=== PATIENT | female | born 2000 | race Asian ===

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

== ENCOUNTER 2018-10-07 23:59 | Emergency (ER) | payer MEDICAID ==
[~2018-10-07] VITALS: Ht 167.6 cm; Wt 167.0 kg
[2018-10-08 00:09] VITALS: BP 128/74
[2018-10-08] MEDS ORDERED: acetaminophen 325mg tablet PO STA (00:20)
[2018-10-08] MEDS ORDERED: DOXY100C43 PO (00:43)
[2018-10-08] MEDS ORDERED: ALBU8HFA PO (00:43)
[2018-10-08] MEDS ORDERED: PRED20TA PO (00:43)
== END 2018-10-08 | disposition home or self-care (01) ==
LOC: ER 10-08
DX: J20.9 Acute bronchitis, unspecified (principal); J22 Unspecified acute lower respiratory infection; J02.9 Acute pharyngitis, unspecified; I10 Essential (primary) hypertension; E11.9 Type 2 diabetes mellitus without complications; F17.210 Nicotine dependence, cigarettes, uncomplicated; Z79.899 Other long term (current) drug therapy
CPT/HCPCS: 99283; 99406

== ENCOUNTER 2020-01-17 16:26 | Emergency (ER) | payer MEDICAID ==
[~2020-01-17] VITALS: Ht 167.6 cm; Wt 173.0 kg
[2020-01-17 17:02] LABS: CLARITY,URINE CLEAR (Clear); COLOR,URINE YELLOW (Yellow); GLUCOSE, URINE NEGATIVE (Neg); KETONES,URINE NEGATIVE (Neg); LEUKOCYTE ESTERASE ,URINE NEGATIVE (Neg); NITRITES, URINE NEGATIVE (Neg); OCCULT BLOOD,URINE NEGATIVE (Neg); PROTEIN,URINE 100 mg/dl (Neg); UROBILINOGEN,URINE 0.2 E.U/dL (0.2-1.0)
[2020-01-17 17:08] LABS: URINE HCG NEGATIVE (NEG)
[2020-01-17 17:09] LABS: BASOPHILS # (AUTO) 0.1 X10'3 (0-0.2); BASOPHILS % (AUTO) 0.3 % (0-1); EOSINOPHILS # (AUTO) 0.5 X10'3 (0-0.9); HEMATOCRIT 44.6 % (35.0-45.0); HEMOGLOBIN 14.7 g/dl (12.0-16.0); LYMPHOCYTES # (AUTO) 3.3 X10'3 (1.1-4.8); LYMPHOCYTES % (AUTO) 18.8 % (21-51); MEAN CORPUSCULAR HEMOGLOBIN 28.9 PG (27.0-31.0); MEAN CORPUSCULAR HGB CONC 32.8 g/dL (33.0-36.5); MEAN CORPUSCULAR VOLUME 87.9 FL (78-98); MEAN PLATELET VOLUME 8.5 FL (7.4-10.4); MONOCYTES # (AUTO) 0.6 X10'3 (0-0.9); MONOCYTES % (AUTO) 3.4 % (2-12); NEUTROPHILS % (AUTO) 74.5 % (42-75); PLATELET COUNT 250 X10'3 (140-440); RED BLOOD COUNT 5.08 X10'6 (4.20-5.60); RED CELL DISTRIBUTION WIDTH 13.8 % (11.5-14.5); WHITE BLOOD COUNT 17.5 X10'3 (4.5-11.0)
[2020-01-17 17:13] LABS: UA COLLECTION TYPE NON-SPECIFIED
[2020-01-17 17:14] LABS: BACTERIA,URINE FEW /HPF (Neg); MUCUS STRANDS FEW /LPF (Neg); RBC,URINE 0-2 /HPF (0-2); SQUAMOUS EPITHELIAL CELL,UR MANY /LPF (FEW); WBC,URINE 0-4 /HPF (0-4)
[2020-01-17] MEDS ORDERED: morphine 2 MG/ML inj. syringe IV ONE (17:15)
[2020-01-17] MEDS ORDERED: ondansetron/PF 4mg/2ml inj IV ONE ×2 (17:15→19:00)
[2020-01-17] MEDS ORDERED: iohexol 300mg/ml 100ml inj. ONE (17:21)
[2020-01-17 17:23] LABS: ALANINE AMINOTRANSFERASE 41 U/L (12-78); ALBUMIN/GLOBULIN RATIO 0.9 (1.1-1.5); ALKALINE PHOSPHATASE 53 IU/L (46-116); ANION GAP 12 (8-16); ASPARTATE AMINO TRANSFERASE 27 U/L (10-37); BILIRUBIN,TOTAL 0.5 MG/DL (0.1-1.0); BLOOD UREA NITROGEN 11 MG/DL (7-18); BUN/CREATININE RATIO 12.9 (6.6-38.0); CALCIUM 9.2 MG/DL (8.5-10.1); CHLORIDE 104 MMOL/L (99-107); CREATININE 0.85 MG/DL (0.40-0.90); GLUCOSE 111 MG/DL (70-104); LIPASE 110 U/L (73-393); POTASSIUM 3.9 MMOL/L (3.5-5.1); SODIUM 139 MMOL/L (135-145); TOTAL CARBON DIOXIDE 22.6 MMOL/L (24-32); TOTAL PROTEIN 8.4 G/DL (6.4-8.2); eGFR 84 ML/MIN
[2020-01-17] MEDS ORDERED: ceFOXitin 1 GM/D5W 50mL IVPB 1 GM in normal saline 100ml IV soln 100 ML IV ONE (18:10)
[2020-01-17] MEDS ORDERED: normal saline 1000ML IV soln IVB ONE (18:10)
[2020-01-17] MEDS ORDERED: ceFOXitin 1 GM/D5W 50mL IVPB 50 ML IV ONE (18:12)
--- NOTE | 2020-01-17 18:45 | NUR ---
returned from [place]
[2020-01-17] MEDS ORDERED: ONDA4TAB6 PO (19:26)
[2020-01-17] MEDS ORDERED: metoclopramide 5 mg/ml inj IV ONE (20:25)
[2020-01-17] MEDS ORDERED: diphenhydrAMINE 50 mg/ml inj IV ONE (20:25)
[2020-01-17 21:32] VITALS: BP 138/87
== END 2020-01-17 21:56 | disposition home or self-care (01) ==
LOC: ER 16:26
DX: R10.13 Epigastric pain (principal); R11.10 Vomiting, unspecified; I10 Essential (primary) hypertension; E11.9 Type 2 diabetes mellitus without complications; F32.9 Major depressive disorder, single episode, unspecified; Z79.899 Other long term (current) drug therapy
CPT/HCPCS: 36415; 74177; 80053; 81001; 81025; 82948; 83605; 83690; 84145; 85025; 87040; 96361; 96374; 96375; 99285; J1200; J2270; J2405; J2765; J7030; Q9967; 96376

== ENCOUNTER 2020-03-03 09:42 | Emergency (ER) | payer MEDICAID ==
[~2020-03-03] VITALS: Ht 167.6 cm; Wt 170.4 kg
[~2020-03-03 09:42] MED LIST changes: +ONDA4TAB6 PO
[2020-03-03 10:41] LABS: BASOPHILS # (AUTO) 0.1 X10'3 (0-0.2); BASOPHILS % (AUTO) 0.5 % (0-1); EOSINOPHILS % (AUTO) 0.2 % (0-6); HEMATOCRIT 43.8 % (35.0-45.0); HEMOGLOBIN 14.6 g/dl (12.0-16.0); LYMPHOCYTES % (AUTO) 16.4 % (21-51); MEAN CORPUSCULAR HEMOGLOBIN 29.3 PG (27.0-31.0); MEAN CORPUSCULAR HGB CONC 33.3 g/dL (33.0-36.5); MEAN CORPUSCULAR VOLUME 87.8 FL (78-98); MEAN PLATELET VOLUME 8.4 FL (7.4-10.4); MONOCYTES # (AUTO) 1.1 X10'3 (0-0.9); MONOCYTES % (AUTO) 6.2 % (2-12); NEUTROPHILS # (AUTO) 14.1 X10'3 (1.8-7.7); NEUTROPHILS % (AUTO) 76.7 % (42-75); PLATELET COUNT 291 X10'3 (140-440); RED BLOOD COUNT 4.99 X10'6 (4.20-5.60); RED CELL DISTRIBUTION WIDTH 13.9 % (11.5-14.5); WHITE BLOOD COUNT 18.4 X10'3 (4.5-11.0)
[2020-03-03] MEDS ORDERED: LIDOcaine Viscous 15ml cup MM STA (10:47)
[2020-03-03] MEDS ORDERED: mag hydrox/Alum hydrox/simeth 30ml oral suspension PO ONE (10:50)
[2020-03-03] MEDS ORDERED: famotidine 20mg tablet PO ONE (10:50)
[2020-03-03 10:58] LABS: CLARITY,URINE CLOUDY (Clear); GLUCOSE, URINE NEGATIVE (Neg); KETONES,URINE NEGATIVE (Neg); LEUKOCYTE ESTERASE ,URINE SMALL (Neg); NITRITES, URINE NEGATIVE (Neg); OCCULT BLOOD,URINE TRACE-INTACT (Neg); PROTEIN,URINE 100 mg/dl (Neg)
[2020-03-03] MEDS ORDERED: normal saline 1000ML IV soln IVB ONE (11:00)
[2020-03-03 11:02] LABS: COLOR,URINE DARK YELLOW (Yellow); UA COLLECTION TYPE CLN CATCH MIDSTREAM
[2020-03-03 11:05] LABS: ALANINE AMINOTRANSFERASE 58 U/L (12-78); ALBUMIN 4.1 G/DL (3.4-5.0); ALBUMIN/GLOBULIN RATIO 0.9 (1.1-1.5); ALKALINE PHOSPHATASE 48 IU/L (46-116); AMYLASE 37 U/L (25-115); ANION GAP 12 (8-16); ASPARTATE AMINO TRANSFERASE 27 U/L (10-37); BILIRUBIN,TOTAL 0.8 MG/DL (0.1-1.0); BLOOD UREA NITROGEN 7 MG/DL (7-18); BUN/CREATININE RATIO 6.1 (6.6-38.0); CALCIUM 9.2 MG/DL (8.5-10.1); CHLORIDE 102 MMOL/L (99-107); CREATININE 1.14 MG/DL (0.40-0.90); GLUCOSE 119 MG/DL (70-104); LIPASE 62 U/L (73-393); POTASSIUM 3.1 MMOL/L (3.5-5.1); SODIUM 142 MMOL/L (135-145); TOTAL CARBON DIOXIDE 27.7 MMOL/L (24-32); TOTAL PROTEIN 8.5 G/DL (6.4-8.2); eGFR 60 ML/MIN
[2020-03-03 11:05] LABS: BACTERIA,URINE 3+ /HPF (Neg); MUCUS STRANDS MODERATE /LPF (Neg); RBC,URINE 0-2 /HPF (0-2); SQUAMOUS EPITHELIAL CELL,UR MANY /LPF (FEW)
[2020-03-03 11:19] LABS: URINE HCG NEGATIVE (NEG)
[2020-03-03] MEDS ORDERED: FAMO40TA58 PO (12:13)
[2020-03-03] MEDS ORDERED: MAG355OR18 PO (12:13)
[2020-03-03] MEDS ORDERED: ONDA4TAB6 PO (12:16)
[2020-03-03 12:20] VITALS: BP 162/91
[2020-03-03] MEDS ORDERED: DICY10CA88 PO (12:30)
== END 2020-03-03 12:32 | disposition home or self-care (01) ==
LOC: ER 09:43
DX: R10.13 Epigastric pain (principal); R11.2 Nausea with vomiting, unspecified; I10 Essential (primary) hypertension; E11.9 Type 2 diabetes mellitus without complications; F32.9 Major depressive disorder, single episode, unspecified; Z87.440 Personal history of urinary (tract) infections; Z79.899 Other long term (current) drug therapy
CPT/HCPCS: 36415; 80053; 81001; 81025; 82150; 83690; 85025; 96360; 99283; J7030

== ENCOUNTER 2020-06-25 06:39 | Emergency (ER) | payer MEDICAID ==
[~2020-06-25] VITALS: Ht 167.6 cm; Wt 159.1 kg
[~2020-06-25 06:39] MED LIST changes: +DICY10CA88 PO; +FAMO40TA58 PO
[2020-06-25] MEDS ORDERED: normal saline 1000ML IV soln IVB ONE (06:50)
[2020-06-25] MEDS ORDERED: ondansetron/PF 4mg/2ml inj IV ONE (06:50)
[2020-06-25] MEDS ORDERED: pantoprazole 40 MG vial IV ONE (07:05)
[2020-06-25] MEDS ORDERED: famotidine/PF 10 mg/ml inj IV ONE (07:05)
[2020-06-25] MEDS ORDERED: diphenhydrAMINE 50 mg/ml inj IV ONE (07:35)
[2020-06-25] MEDS ORDERED: LORazepam 2 mg/ml vial IV ONE (07:35)
[2020-06-25] MEDS ORDERED: proCHLORperazine 10 MG/2 ml inj IV ONE (07:35)
[2020-06-25] MEDS ORDERED: ketorolac trometh. 30mg/ml inj. IV ONE (07:45)
[2020-06-25 07:50] LABS: URINE HCG NEGATIVE (NEG)
[2020-06-25 07:55] LABS: BASOPHILS # (AUTO) 0.1 X10'3 (0-0.2); BASOPHILS % (AUTO) 0.6 % (0-1); EOSINOPHILS # (AUTO) 0.6 X10'3 (0-0.9); EOSINOPHILS % (AUTO) 4.3 % (0-6); HEMATOCRIT 41.4 % (35.0-45.0); HEMOGLOBIN 13.6 g/dl (12.0-16.0); LYMPHOCYTES # (AUTO) 3.5 X10'3 (1.1-4.8); MEAN CORPUSCULAR HEMOGLOBIN 28.7 PG (27.0-31.0); MEAN CORPUSCULAR HGB CONC 32.9 g/dL (33.0-36.5); MEAN CORPUSCULAR VOLUME 87.4 FL (78-98); MEAN PLATELET VOLUME 8.9 FL (7.4-10.4); MONOCYTES # (AUTO) 0.7 X10'3 (0-0.9); NEUTROPHILS % (AUTO) 65.1 % (42-75); PLATELET COUNT 246 X10'3 (140-440); RED BLOOD COUNT 4.73 X10'6 (4.20-5.60); RED CELL DISTRIBUTION WIDTH 13.9 % (11.5-14.5); WHITE BLOOD COUNT 13.8 X10'3 (4.5-11.0)
[2020-06-25 07:58] LABS: CLARITY,URINE CLOUDY (Clear); COLOR,URINE YELLOW (Yellow); GLUCOSE, URINE NEGATIVE (Neg); KETONES,URINE NEGATIVE (Neg); LEUKOCYTE ESTERASE ,URINE SMALL (Neg); NITRITES, URINE NEGATIVE (Neg); OCCULT BLOOD,URINE NEGATIVE (Neg); PH,URINE 7.5 (4.8-8.0); PROTEIN,URINE TRACE mg/dl (Neg)
[2020-06-25 08:04] LABS: ALANINE AMINOTRANSFERASE 57 U/L (12-78); ALBUMIN 3.9 G/DL (3.4-5.0); ALBUMIN/GLOBULIN RATIO 0.9 (1.1-1.5); ALKALINE PHOSPHATASE 48 IU/L (46-116); ANION GAP 10 (8-16); ASPARTATE AMINO TRANSFERASE 29 U/L (10-37); BILIRUBIN,TOTAL 0.6 MG/DL (0.1-1.0); BLOOD UREA NITROGEN 9 MG/DL (7-18); CALCIUM 8.8 MG/DL (8.5-10.1); CHLORIDE 104 MMOL/L (99-107); CREATININE 0.82 MG/DL (0.40-0.90); GLUCOSE 106 MG/DL (70-104); LIPASE 88 U/L (73-393); POTASSIUM 3.6 MMOL/L (3.5-5.1); SODIUM 138 MMOL/L (135-145); TOTAL CARBON DIOXIDE 24.1 MMOL/L (24-32); TOTAL PROTEIN 8.2 G/DL (6.4-8.2); eGFR 87 ML/MIN
[2020-06-25 08:15] LABS: UA COLLECTION TYPE CLN CATCH MIDSTREAM
[2020-06-25 08:17] LABS: HYALINE CASTS 0-3 /LPF (NEGATIVE); MUCUS STRANDS FEW /LPF (Neg)
[2020-06-25 08:18] LABS: RBC,URINE 0-2 /HPF (0-2)
[2020-06-25 08:20] LABS: BACTERIA,URINE 2+ /HPF (Neg)
[2020-06-25 08:21] LABS: SQUAMOUS EPITHELIAL CELL,UR MANY /LPF (FEW)
[2020-06-25] MEDS ORDERED: metoclopramide 5 mg/ml inj IV ONE (09:05)
[2020-06-25] MEDS ORDERED: ONDA4TAB6 PO (09:27)
[2020-06-25] MEDS ORDERED: PROM25SU9 RC (09:27)
[2020-06-25] MEDS ORDERED: PANT-47 PO (09:27)
[2020-06-25 09:54] VITALS: BP 148/105
== END 2020-06-25 09:55 | disposition home or self-care (01) ==
LOC: ER 06:40
DX: R11.15 Cyclical vomiting syndrome unrelated to migraine (principal); R10.13 Epigastric pain; R11.2 Nausea with vomiting, unspecified; I10 Essential (primary) hypertension; E11.9 Type 2 diabetes mellitus without complications; F32.9 Major depressive disorder, single episode, unspecified; F12.90 Cannabis use, unspecified, uncomplicated; Z79.899 Other long term (current) drug therapy
CPT/HCPCS: 36415; 80053; 81001; 81025; 83690; 85025; 96361; 96374; 96375; 99285; C9113; J0780; J1200; J1885; J2060; J2405; J2765; J3490; J7030

== ENCOUNTER 2020-10-13 07:50 | Emergency (ER) | payer MEDICAID ==
[~2020-10-13] VITALS: Ht 172.7 cm; Wt 154.0 kg
[~2020-10-13 07:50] MED LIST changes: +PANT-47 PO; +PROM25SU9 RC
[2020-10-13 08:21] LABS: BASOPHILS # (AUTO) 0.1 X10'3 (0-0.2); BASOPHILS % (AUTO) 0.7 % (0-1); EOSINOPHILS # (AUTO) 0.2 X10'3 (0-0.9); EOSINOPHILS % (AUTO) 0.9 % (0-6); HEMATOCRIT 43.2 % (35.0-45.0); HEMOGLOBIN 14.6 g/dl (12.0-16.0); LYMPHOCYTES # (AUTO) 2.7 X10'3 (1.1-4.8); LYMPHOCYTES % (AUTO) 14.7 % (21-51); MEAN CORPUSCULAR HGB CONC 33.7 g/dL (33.0-36.5); MEAN CORPUSCULAR VOLUME 86.2 FL (78-98); MEAN PLATELET VOLUME 8.9 FL (7.4-10.4); MONOCYTES # (AUTO) 0.7 X10'3 (0-0.9); MONOCYTES % (AUTO) 4.1 % (2-12); NEUTROPHILS # (AUTO) 14.6 X10'3 (1.8-7.7); NEUTROPHILS % (AUTO) 79.6 % (42-75); PLATELET COUNT 293 X10'3 (140-440); RED BLOOD COUNT 5.02 X10'6 (4.20-5.60); RED CELL DISTRIBUTION WIDTH 14.5 % (11.5-14.5); WHITE BLOOD COUNT 18.3 X10'3 (4.5-11.0)
[2020-10-13] MEDS ORDERED: pantoprazole 40 MG vial IV ONE (08:25)
[2020-10-13] MEDS ORDERED: LORazepam 2 mg/ml vial IV ONE (08:25)
[2020-10-13] MEDS ORDERED: ondansetron/PF 4mg/2ml inj IV ONE (08:25)
[2020-10-13] MEDS ORDERED: morphine 2 MG/ML inj. syringe IV PRN (08:25)
[2020-10-13] MEDS ORDERED: normal saline 1000ML IV soln IVB ONE (08:25)
[2020-10-13] MEDS ORDERED: famotidine/PF 10 mg/ml inj IV ONE (08:25)
[2020-10-13 08:36] LABS: ALANINE AMINOTRANSFERASE 52 U/L (12-78); ALBUMIN 4.2 G/DL (3.4-5.0); ALKALINE PHOSPHATASE 56 IU/L (46-116); ANION GAP 15 (8-16); ASPARTATE AMINO TRANSFERASE 32 U/L (10-37); BILIRUBIN,TOTAL 0.7 MG/DL (0.1-1.0); BLOOD UREA NITROGEN 10 MG/DL (7-18); BUN/CREATININE RATIO 10.2 (6.6-38.0); CALCIUM 9.5 MG/DL (8.5-10.1); CHLORIDE 104 MMOL/L (99-107); CREATININE 0.98 MG/DL (0.40-0.90); GLUCOSE 123 MG/DL (70-104); POTASSIUM 3.5 MMOL/L (3.5-5.1); SODIUM 140 MMOL/L (135-145); TOTAL PROTEIN 8.6 G/DL (6.4-8.2); eGFR 71 ML/MIN
[2020-10-13 08:38] LABS: AMYLASE 49 U/L (25-115); LIPASE 57 U/L (73-393)
[2020-10-13 10:31] LABS: URINE HCG NEGATIVE (NEG)
[2020-10-13 10:32] LABS: CLARITY,URINE SLIGHTLY CLOUDY (Clear); COLOR,URINE YELLOW (Yellow); GLUCOSE, URINE NEGATIVE (Neg); KETONES,URINE 40 mg/dl (Neg); LEUKOCYTE ESTERASE ,URINE TRACE (Neg); NITRITES, URINE NEGATIVE (Neg); OCCULT BLOOD,URINE MODERATE (Neg); PH,URINE 8.5 (4.8-8.0); PROTEIN,URINE TRACE mg/dl (Neg); UROBILINOGEN,URINE 0.2 E.U/dL (0.2-1.0)
[2020-10-13 10:37] LABS: UA COLLECTION TYPE CLN CATCH MIDSTREAM
[2020-10-13 10:38] LABS: SQUAMOUS EPITHELIAL CELL,UR FEW /LPF (FEW)
[2020-10-13 10:39] LABS: BACTERIA,URINE FEW /HPF (Neg); RBC,URINE 0-2 /HPF (0-2); WBC,URINE 0-4 /HPF (0-4)
[2020-10-13] MEDS ORDERED: PANT-47 PO (10:44)
[2020-10-13] MEDS ORDERED: ONDA8TAB13 PO (10:44)
[2020-10-13] MEDS ORDERED: morphine 4 MG/ML inj SYRINge IM ONE (10:45)
[2020-10-13] MEDS ORDERED: metoclopramide 5 mg/ml inj IV ONE (10:50)
[2020-10-13 11:19] VITALS: BP 121/61
== END 2020-10-13 11:40 | disposition home or self-care (01) ==
LOC: ER 07:51
DX: R11.2 Nausea with vomiting, unspecified (principal); R10.13 Epigastric pain; I10 Essential (primary) hypertension; E11.9 Type 2 diabetes mellitus without complications; F12.90 Cannabis use, unspecified, uncomplicated; F17.200 Nicotine dependence, unspecified, uncomplicated; Z87.440 Personal history of urinary (tract) infections; Z72.89 Other problems related to lifestyle; Z79.899 Other long term (current) drug therapy; Z88.8 Allergy status to other drugs, medicaments and biological substances
CPT/HCPCS: 36415; 80053; 81001; 81025; 82150; 83690; 85025; 87088; 96361; 96372; 96374; 96375; 99285; C9113; J2060; J2270; J2405; J2765; J3490; J7030

== ENCOUNTER 2021-06-13 18:04 | Emergency (ER) | payer MEDICAID ==
[~2021-06-13] VITALS: Ht 167.6 cm; Wt 125.0 kg
[~2021-06-13 18:04] MED LIST changes: +LIDOcaine 1% W/epiNEPHrine 1:100,000 20ml vial ONE; +ONDA8TAB13 PO
[2021-06-13] MEDS ORDERED: TETanus/Pertussis (Acell)/Diphther VAC/PF (Tdap-Adult) 0.5ml syringe IMVAC ONE (18:15)
[2021-06-13 18:34] VITALS: BP 170/93
[2021-06-13] MEDS ORDERED: CefTRIAXone 1000mg IM Kit (w/lidocaine diluent) IM ONE (18:50)
[2021-06-13] MEDS ORDERED: HYDR-3965 PO (18:58)
[2021-06-13] MEDS ORDERED: SULF1TAB45 PO (18:58)
== END 2021-06-13 19:10 | disposition home or self-care (01) ==
LOC: ER 18:05
DX: N61.1 Abscess of the breast and nipple (principal); I10 Essential (primary) hypertension; E11.9 Type 2 diabetes mellitus without complications; F32.9 Major depressive disorder, single episode, unspecified; F12.90 Cannabis use, unspecified, uncomplicated; Z87.440 Personal history of urinary (tract) infections; Z20.3 Contact with and (suspected) exposure to rabies; Z72.89 Other problems related to lifestyle; Z79.2 Long term (current) use of antibiotics; Z79.899 Other long term (current) drug therapy
CPT/HCPCS: 10061; 90471; 90715; 96372; 99284; J0696; 10060

== ENCOUNTER 2022-04-06 13:03 | Outpatient (CLI) | payer MEDICAID ==
[~2022-04-06 13:03] MED LIST changes: -LIDOcaine 1% W/epiNEPHrine 1:100,000 20ml vial ONE
== END 2022-04-06 23:59 | disposition home or self-care (01) ==
LOC: LAB SPEC 13:03
PROVIDERS: ATTEND Surgery
DX: G11.0 Congenital nonprogressive ataxia (principal)
CPT/HCPCS: 87070; 87077; 87186

== ENCOUNTER 2022-09-30 17:58 | Emergency (ER) | payer MEDICAID ==
[~2022-09-30] VITALS: Ht 167.6 cm; Wt 143.0 kg
[2022-09-30 18:03] VITALS: BP 187/102
[2022-09-30] MEDS ORDERED: orphenadrine citrate 60mg/2ml inj. IM ONE (18:25)
[2022-09-30] MEDS ORDERED: CYCL-1 PO (18:27)
== END 2022-09-30 18:46 | disposition home or self-care (01) ==
LOC: ER 17:58
DX: M54.50 Low back pain, unspecified (principal); I10 Essential (primary) hypertension; E11.9 Type 2 diabetes mellitus without complications; F32.9 Major depressive disorder, single episode, unspecified; F12.90 Cannabis use, unspecified, uncomplicated; Z72.89 Other problems related to lifestyle; Z79.899 Other long term (current) drug therapy
CPT/HCPCS: 96372; 99283; J2360

== ENCOUNTER 2023-08-06 07:38 | Emergency (ER) | payer MEDICAID ==
[~2023-08-06] VITALS: Ht 167.6 cm; Wt 163.2 kg
[~2023-08-06 07:38] MED LIST changes: +CYCL-1 PO
[2023-08-06] MEDS ORDERED: HYDROcodone/acetaminophen 5mg/325mg tablet PO STA (07:44)
[2023-08-06] MEDS ORDERED: ibuprofen 200mg tablet PO ONE (08:25)
[2023-08-06 10:09] VITALS: BP 143/83; PULSE 95; RESP 16; TEMP 98; O2SAT 99
== END 2023-08-06 10:11 | disposition home or self-care (01) ==
LOC: ER 07:39
DX: S92.354A Nondisplaced fracture of fifth metatarsal bone, right foot, initial encounter for closed fracture (principal); X58.XXXA Exposure to other specified factors, initial encounter; Y93.89 Activity, other specified; Y92.89 Other specified places as the place of occurrence of the external cause; Y99.8 Other external cause status
CPT/HCPCS: 29515; 73630; 99284; A6446; A6449

== ENCOUNTER 2024-04-23 21:08 | Emergency (ER) | payer MEDICAID, OTHER ==
[~2024-04-23] VITALS: Ht 167.6 cm; Wt 143.6 kg
[~2024-04-23 21:08] MED LIST changes: +ONDA-245 PO; -ONDA8TAB13 PO
[2024-04-23 21:47] LABS: BASOPHILS # (AUTO) 0.2 X10'3 (0-0.2); BASOPHILS % (AUTO) 0.9 % (0-1); EOSINOPHILS # (AUTO) 0.2 X10'3 (0-0.9); EOSINOPHILS % (AUTO) 1.1 % (0-6); HEMATOCRIT 41.3 % (35.0-45.0); HEMOGLOBIN 13.9 g/dl (12.0-16.0); LYMPHOCYTES # (AUTO) 2.7 X10'3 (1.1-4.8); LYMPHOCYTES % (AUTO) 15.9 % (21-51); MEAN CORPUSCULAR HEMOGLOBIN 28.8 PG (27.0-31.0); MEAN CORPUSCULAR HGB CONC 33.6 g/dL (33.0-36.5); MEAN CORPUSCULAR VOLUME 85.9 FL (78-98); MONOCYTES # (AUTO) 0.7 X10'3 (0-0.9); MONOCYTES % (AUTO) 4.3 % (2-12); NEUTROPHILS # (AUTO) 13.1 X10'3 (1.8-7.7); NEUTROPHILS % (AUTO) 77.8 % (42-75); PLATELET COUNT 227 X10'3 (140-440); RED BLOOD COUNT 4.81 X10'6 (4.20-5.60); RED CELL DISTRIBUTION WIDTH 13.7 % (11.5-14.5); WHITE BLOOD COUNT 16.8 X10'3 (4.5-11.0)
[2024-04-23 22:04] LABS: ALANINE AMINOTRANSFERASE 38 U/L (12-78); ALBUMIN 4.2 G/DL (3.4-5.0); ALBUMIN/GLOBULIN RATIO 1.1 (1.1-1.5); ALKALINE PHOSPHATASE 57 IU/L (46-116); ANION GAP 15 (8-16); ASPARTATE AMINO TRANSFERASE 24 U/L (10-37); BILIRUBIN,TOTAL 0.9 MG/DL (0.1-1.0); BLOOD UREA NITROGEN 10 MG/DL (7-18); BUN/CREATININE RATIO 10.2 (10.0-20.0); CALCIUM 9.5 MG/DL (8.5-10.1); CHLORIDE 105 MMOL/L (99-107); CREATININE 0.98 MG/DL (0.40-0.90); GLUCOSE 122 MG/DL (70-104); LIPASE 27 U/L (16-77); POTASSIUM 3.1 MMOL/L (3.5-5.1); SODIUM 140 MMOL/L (135-145); TOTAL CARBON DIOXIDE 19.7 MMOL/L (24-32); TOTAL PROTEIN 8.1 G/DL (6.4-8.2); eCRCL 82 ML/MIN; eGFR 69 ML/MIN
[2024-04-23] MEDS: proCHLORperazine 10 MG/2 ml inj IV ONE (22:24)
[2024-04-23] MEDS: ondansetron/PF 4mg/2ml inj IV ONE (22:25)
[2024-04-23] MEDS: diphenhydrAMINE 50 mg/ml inj IV ONE (22:25)
[2024-04-23] MEDS: normal saline 1000ml 1,000 ML IV ONE (22:27)
[2024-04-23] MEDS: haloperidol lactate 5mg/ml inj IVH ONE (22:27)
[2024-04-23 23:35] LABS: URINE HCG NEGATIVE (NEG)
[2024-04-23 23:36] LABS: BILIRUBIN,URINE NEGATIVE (Neg); CLARITY,URINE SLIGHTLY CLOUDY (Clear); COLOR,URINE YELLOW (Yellow); GLUCOSE, URINE NEGATIVE (Neg); KETONES,URINE >=80 mg/dl (Neg); LEUKOCYTE ESTERASE ,URINE NEGATIVE (Neg); NITRITES, URINE NEGATIVE (Neg); OCCULT BLOOD,URINE NEGATIVE (Neg); PH,URINE 7.5 (4.8-8.0); PROTEIN,URINE TRACE mg/dl (Neg); UROBILINOGEN,URINE 0.2 E.U/dL (0.2-1.0)
[2024-04-23] MEDS ORDERED: ONDA-245 PO (23:45)
[2024-04-23 23:50] LABS: UA COLLECTION TYPE CLN CATCH MIDSTREAM
[2024-04-23 23:54] LABS: BACTERIA,URINE FEW /HPF (Neg); RBC,URINE 0-2 /HPF (0-2); SQUAMOUS EPITHELIAL CELL,UR MANY /LPF (FEW); WBC,URINE 0-4 /HPF (0-4)
[2024-04-24] MEDS: metoclopramide 5 mg/ml inj IV ONE (00:03)
[2024-04-24] MEDS: LORazepam 2 mg/ml vial IV ONE (00:04)
[2024-04-24] MEDS: morphine 4 MG/ML inj SYRINge IV ONE (00:04)
[2024-04-24 00:36] VITALS: BP 162/101; PULSE 101; RESP 18; TEMP 98.2; O2SAT 98
== END 2024-04-24 00:38 | disposition home or self-care (01) ==
LOC: ER 21:09
DX: R11.10 Vomiting, unspecified (principal); R10.9 Unspecified abdominal pain; I10 Essential (primary) hypertension; E11.9 Type 2 diabetes mellitus without complications; F12.90 Cannabis use, unspecified, uncomplicated; Z79.899 Other long term (current) drug therapy
CPT/HCPCS: 80053; 81001; 81025; 83690; 85025; 93005; 96361; 96374; 96375; 99284; A6258; J0780; J1200; J1630; J2060; J2270; J2405; J2765; J7030